=== PATIENT | female | born 1980 | race Caucasian/White ===

== ENCOUNTER 2016-11-05 10:28 | Outpatient (CLI) | payer BC ==
[~2016-11-05] VITALS: Ht 167.6 cm; Wt 63.6 kg
[~2016-11-05 10:28] MED LIST: ACETAZOLAMIDE OR; EFFE75CA75 OR; FLEXERIL OR; TOPI100T OR
[2016-11-05] MEDS ORDERED: KETOROLAC 30 MG/ML VIAL (J1885) IV ONE (12:00)
[2016-11-05] MEDS ORDERED: MAGNESIUM SULFATE 1 GM/100 ML D5W BAG (10MG/ML) (J3475) IV ONE (12:00)
[2016-11-05] MEDS ORDERED: methylPREDNISolone 1,000 MG, VIAL MATE ADAPTER 1 EACH in D5W 250 ML IV ONE (12:00)
[2016-11-05] MEDS ORDERED: NS IV ONE (12:00)
[2016-11-05] MEDS ORDERED: ONDANSETRON 4MG/2ML VIAL (J2405) IV ONE (12:00)
[2016-11-05] MEDS ORDERED: VALPROATE SOD IV ONE (12:00)
[2016-11-05] MEDS ORDERED: IBUP80TA PO (16:08)
== END 2016-11-05 14:15 | disposition home or self-care (01) ==
LOC: M INFU 10:28
PROVIDERS: ATTEND Nurse Practitioner Adult Health
DX: G43.011 Migraine without aura, intractable, with status migrainosus (principal); R01.1 Cardiac murmur, unspecified; Z88.0 Allergy status to penicillin; Z88.8 Allergy status to other drugs, medicaments and biological substances; Z79.899 Other long term (current) drug therapy
CPT/HCPCS: 96365; 96366; 96374; 96375; J1885; J2405; J2930; J3475

== ENCOUNTER → 2017-11-28 | Outpatient (CLI) | payer BC ==
[2017-11-28 13:44] LABS: BASO % 0.6 % (0.0-1.0); EOS # 0.1 10^3/uL (0.0-0.50); EOS % 2.1 % (0.0-3.0); HEMATOCRIT 41.7 % (36.0-47.0); HEMOGLOBIN 13.7 g/dl (12.0-15.5); IMMATURE GRANULOCYTE % 0.2 % (0-3.0); LYMPH # 1.8 10^3/uL (1.5-4.5); LYMPH % 34.8 % (24.0-44.0); MEAN CORPUSCULAR HEMOGLOBIN 29.3 pg (27.0-33.0); MEAN CORPUSCULAR HGB CONC 32.9 g/dl (32.0-36.5); MEAN CORPUSCULAR VOLUME 89.1 fl (80.0-96.0); MONO # 0.5 10^3/uL (0.0-0.8); MONO % 8.9 % (0.0-5.0); NEUTROPHILS # 2.8 10^3/uL (1.8-7.7); NEUTROPHILS % 53.4 % (36.0-66.0); PLATELET COUNT, AUTOMATED 280 10^3/uL (150-450); RED BLOOD COUNT 4.68 10^6/uL (4.00-5.40); RED CELL DISTRIBUTION WIDTH 13.3 % (11.5-14.5); WHITE BLOOD COUNT 5.2 10^3/uL (4.0-10.0)
[2017-11-28 13:57] LABS: ALBUMIN 4.1 GM/DL (3.2-5.2); ALBUMIN/GLOBULIN RATIO 1.32 (1.00-1.93); ALKALINE PHOSPHATASE 40 U/L (45-117); ALT/SGPT 19 U/L (12-78); ANION GAP 5 MEQ/L (8-16); AST/SGOT 18 U/L (7-37); BILIRUBIN,TOTAL 0.8 MG/DL (0.2-1.0); BLOOD UREA NITROGEN 15 MG/DL (7-18); CALCIUM LEVEL 8.7 MG/DL (8.5-10.1); CARBON DIOXIDE LEVEL 27 MEQ/L (21-32); CHLORIDE LEVEL 109 MEQ/L (98-107); GLOMERULAR FILTRATION RATE > 60.0 (>60); GLUCOSE, FASTING 80 MG/DL (70-100); POTASSIUM SERUM 4.2 MEQ/L (3.5-5.1); RHEUMATOID FACTOR QUANT < 10.0 IU/ML (<15.0); SODIUM LEVEL 141 MEQ/L (136-145); TOTAL PROTEIN 7.2 GM/DL (6.4-8.2)
[2017-11-28 14:15] LABS: ERYTHROCYTE SEDIMENTATION RATE 6 mm/hr (0-20)
[2017-11-28 14:46] LABS: ESTIMATED AVERAGE GLUCOSE 88 MG/DL (60-110); HEMOGLOBIN A1c 4.7 %
[2017-11-29 07:49] LABS: TOTAL 25(OH) VITAMIN D 38.4 NG/ML (30.0-100.0)
[2017-11-29 08:19] LABS: FOLATE > 24.0 NG/ML (>5.4); VITAMIN B12 LEVEL 1510 PG/ML (247-911)
[2017-12-01 08:07] LABS: ANTI DOUBLE STRAND-DNA AB <1 IU/mL (0-9); ANTINUCLEAR ANTIBODIES DIRECT Negative (Negative); Lyme Disease IgG Ab 18 kDa Ban Absent (.); Lyme Disease IgG Ab 23 kDa Ban Absent (.); Lyme Disease IgG Ab 28 kDa Ban Absent (.); Lyme Disease IgG Ab 30 kDa Ban Absent (.); Lyme Disease IgG Ab 39 kDa Ban Absent (.); Lyme Disease IgG Ab 41 kDa Ban Absent (.); Lyme Disease IgG Ab 45 kDa Ban Absent (.); Lyme Disease IgG Ab 58 kDa Ban Absent (.); Lyme Disease IgG Ab 66 kDa Ban Absent (.); Lyme Disease IgG Ab 93 kDa Ban Absent (.); Lyme Disease IgG West Blot Int Negative (.); Lyme Disease IgG/IgM Antibodie <0.91 ISR (0.00-0.90); Lyme Disease IgM Ab 23 kDa Ban Present (.); Lyme Disease IgM Ab 39 kDa Ban Absent (.); Lyme Disease IgM Ab 41 kDa Ban Absent (.); Lyme Disease IgM Ab Quantitati 0.84 index (0.00-0.79); Lyme Disease IgM West Blot Int Negative (.); SJOGREN'S ANTI SS-A <0.2 AI (0.0-0.9); SJOGREN'S ANTI SS-B <0.2 AI (0.0-0.9)
[2017-12-02 14:12] LABS: VITAMIN E(GAMMA TOCOPHEROL) 0.3 mg/L (0.7-4.9)
[2017-12-03 00:08] LABS: VITAMIN B1 LEVEL WHOLE BLOOD 227.2 nmol/L (66.5-200.0); VITAMIN B6,PYRIDOXAL PHOSPHATE 100.7 ug/L (2.0-32.8)
== END ==
LOC: M LABNEURO 09:16
DX: R51 Headache (principal); G31.84 Mild cognitive impairment of uncertain or unknown etiology
CPT/HCPCS: 82746

== ENCOUNTER 2017-12-06 12:06 | Outpatient (CLI) | payer BC ==
[2017-12-06] MEDS: ONDANSETRON 4MG/2ML VIAL (J2405) IV (12:37)
[2017-12-06] MEDS: KETOROLAC 30 MG/ML VIAL (J1885) IV (12:37)
[2017-12-06] MEDS: NS MINI IV (13:27)
[2017-12-06] MEDS: VALPROATE SOD IV (13:27)
[2017-12-06] MEDS: methylPREDNISolone 1,000 MG, VIAL MATE ADAPTER 1 EACH in D5W 250 ML IV (14:01)
[2017-12-06] MEDS: MAG SULF 1GM/100ML (MAG RUN) SINGLE DOSE IV (15:17)
== END 2017-12-06 16:37 | disposition home or self-care (01) ==
LOC: M OPCLI4PV 12:06 → M MSPAV 12:09 → M OPCLI4PV 16:37
DX: G43.011 Migraine without aura, intractable, with status migrainosus (principal)
CPT/HCPCS: J2405

== ENCOUNTER → 2018-02-10 | Outpatient (CLI) | payer BC | LOC: M LRY 16:24 | DX: S99.922A Unspecified injury of left foot, initial encounter (principal); X58.XXXA Exposure to other specified factors, initial encounter; Y92.9 Unspecified place or not applicable | CPT/HCPCS: G0463 ==

== ENCOUNTER → 2018-04-21 | Outpatient (REF) | payer BC ==
[2018-04-21 13:30] LABS: BASO % 0.2 % (0.0-1.0); EOS # 0.1 10^3/uL (0.0-0.50); EOS % 2.4 % (0.0-3.0); HEMATOCRIT 41.9 % (36.0-47.0); HEMOGLOBIN 13.7 g/dl (12.0-15.5); IMMATURE GRANULOCYTE % 0.2 % (0-3.0); LYMPH # 1.7 10^3/uL (1.5-4.5); LYMPH % 34.2 % (24.0-44.0); MEAN CORPUSCULAR HGB CONC 32.7 g/dl (32.0-36.5); MEAN CORPUSCULAR VOLUME 88.6 fl (80.0-96.0); MONO # 0.4 10^3/uL (0.0-0.8); MONO % 7.5 % (0.0-5.0); NEUTROPHILS # 2.7 10^3/uL (1.8-7.7); NEUTROPHILS % 55.5 % (36.0-66.0); PLATELET COUNT, AUTOMATED 242 10^3/uL (150-450); RED BLOOD COUNT 4.73 10^6/uL (4.00-5.40); RED CELL DISTRIBUTION WIDTH 12.5 % (11.5-14.5); WHITE BLOOD COUNT 4.9 10^3/uL (4.0-10.0)
[2018-04-22 00:13] LABS: ALBUMIN 3.9 GM/DL (3.2-5.2); ALKALINE PHOSPHATASE 48 U/L (45-117); ALT/SGPT 19 U/L (12-78); ANION GAP 9 MEQ/L (8-16); AST/SGOT 15 U/L (7-37); BILIRUBIN,TOTAL 0.9 MG/DL (0.2-1.0); BLOOD UREA NITROGEN 14 MG/DL (7-18); CALCIUM LEVEL 8.5 MG/DL (8.5-10.1); CARBON DIOXIDE LEVEL 24 MEQ/L (21-32); CHLORIDE LEVEL 108 MEQ/L (98-107); CREATININE FOR GFR 0.82 MG/DL (0.55-1.30); FERRITIN 68 NG/ML (8-252); GLOMERULAR FILTRATION RATE > 60.0 (>60); GLUCOSE, FASTING 78 MG/DL (70-100); IRON (FE) 129 UG/DL (50-170); SODIUM LEVEL 141 MEQ/L (136-145); TOTAL IRON BINDING CAPACITY 267 UG/DL (250-450); TOTAL PROTEIN 6.7 GM/DL (6.4-8.2)
[2018-04-22 00:51] LABS: ALBUMIN/GLOBULIN RATIO 1.39 (1.00-1.93); PERCENT SATURATION 48.3 % (13.2-45.0)
[2018-04-22 08:06] LABS: TRANSFERRIN 206 mg/dL (200-370)
== END ==
LOC: M LABNEURO 10:05
DX: G25.81 Restless legs syndrome (principal)
CPT/HCPCS: 83550

== ENCOUNTER 2018-05-27 07:10 | Outpatient (CLI) | payer BC ==
[2018-05-27] MEDS: ONDANSETRON 4MG/2ML VIAL (J2405) IV (07:38)
[2018-05-27] MEDS: methylPREDNISolone 1,000 MG, VIAL MATE ADAPTER 1 EACH in D5W 250 ML IV (07:39)
[2018-05-27] MEDS: VALPROATE SOD IV (09:01)
[2018-05-27] MEDS: NS IV (09:01)
[2018-05-27] MEDS: KETOROLAC 30 MG/ML VIAL (J1885) IV (09:01)
[2018-05-27] MEDS: MAG SULF 1GM/100ML (MAG RUN) SINGLE DOSE IV (10:06)
== END 2018-05-27 11:15 | disposition home or self-care (01) ==
LOC: M INFU 07:10
DX: G43.011 Migraine without aura, intractable, with status migrainosus (principal)
CPT/HCPCS: J2405

== ENCOUNTER 2018-06-11 06:59 | Outpatient (CLI) | payer BC, SELFPAY ==
[2018-06-11] MEDS: ONDANSETRON 4MG/2ML VIAL (J2405) IV ×2 (07:43)
[2018-06-11] MEDS: MAG SULF 1GM/100ML (MAG RUN) 1 GM in APPROPRIATE DILUENT 1 EA IV (07:45)
[2018-06-11] MEDS: KETOROLAC 30 MG/ML VIAL (J1885) IV ×2 (09:01)
[2018-06-11] MEDS: VALPROATE SOD IV (09:03)
[2018-06-11] MEDS: NS IV (09:03)
[2018-06-11] MEDS: methylPREDNISolone 1,000 MG, VIAL MATE ADAPTER 1 EACH in D5W 250 ML IV ×2 (10:15)
== END 2018-06-11 11:30 | disposition home or self-care (01) ==
LOC: M INFU 06:59
DX: G43.011 Migraine without aura, intractable, with status migrainosus (principal); Z88.8 Allergy status to other drugs, medicaments and biological substances; Z88.0 Allergy status to penicillin; Z90.710 Acquired absence of both cervix and uterus
CPT/HCPCS: J2405

== ENCOUNTER 2018-06-20 13:15 | Outpatient (CLI) | payer BC ==
[2018-06-20] MEDS: ONDANSETRON 4MG/2ML VIAL (J2405) IV ×2 (13:57)
[2018-06-20] MEDS: KETOROLAC 30 MG/ML VIAL (J1885) IV ×2 (13:58)
[2018-06-20] MEDS: VALPROATE SOD IV (13:59)
[2018-06-20] MEDS: NS IV (13:59)
[2018-06-20] MEDS: methylPREDNISolone 1,000 MG, VIAL MATE ADAPTER 1 EACH in D5W 250 ML IV ×2 (14:30)
[2018-06-20] MEDS: MAG SULF 1GM/100ML (MAG RUN) SINGLE DOSE IV ×2 (15:35)
== END 2018-06-20 16:35 | disposition home or self-care (01) ==
LOC: M INFU 13:15
DX: G43.011 Migraine without aura, intractable, with status migrainosus (principal); Z88.0 Allergy status to penicillin; Z88.8 Allergy status to other drugs, medicaments and biological substances
CPT/HCPCS: J2405

== ENCOUNTER → 2018-12-17 | Outpatient (REF) | payer OTHER ==
[~2018-12-17] MED LIST changes: +IBUP80TA PO
== END ==
LOC: M LAB REF 15:56
PROVIDERS: ATTEND Radiology Diagnostic Radiology
DX: N63.10 Unspecified lump in the right breast, unspecified quadrant (principal)

== ENCOUNTER → 2019-07-06 | Outpatient (REF) | payer OTHER ==
[~2019-07-06] MED LIST changes: +GALC120S SQ; +ZOMI2.5T4 PO
[2019-07-06 19:27] LABS: BASO % 0.4 % (0.0-1.0); EOS % 1.9 % (0.0-3.0); HEMATOCRIT 43.6 % (36.0-47.0); HEMOGLOBIN 13.9 g/dl (12.0-15.5); LYMPH # 2.1 10^3/uL (1.5-5.0); LYMPH % 38.6 % (24.0-44.0); MEAN CORPUSCULAR HEMOGLOBIN 29.2 pg (27.0-33.0); MEAN CORPUSCULAR HGB CONC 31.9 g/dl (32.0-36.5); MEAN CORPUSCULAR VOLUME 91.6 fl (80.0-96.0); MONO # 0.5 10^3/uL (0.0-0.8); NEUTROPHILS # 2.7 10^3/uL (1.5-8.5); NEUTROPHILS % 49.9 % (36.0-66.0); PLATELET COUNT, AUTOMATED 248 10^3/uL (150-450); RED BLOOD COUNT 4.76 10^6/uL (4.00-5.40); WHITE BLOOD COUNT 5.3 10^3/uL (4.0-10.0)
[2019-07-06 19:28] LABS: EOS # 0.1 10^3/uL (0.0-0.5)
[2019-07-06 19:34] LABS: ALT/SGPT 26 U/L (12-78); BILIRUBIN,TOTAL 0.6 MG/DL (0.2-1.0); BLOOD UREA NITROGEN 12 MG/DL (7-18); CALCIUM LEVEL 8.5 MG/DL (8.5-10.1); CARBON DIOXIDE LEVEL 26 MEQ/L (21-32); CHLORIDE LEVEL 110 MEQ/L (98-107); CREATININE FOR GFR 0.91 MG/DL (0.55-1.30); GLOMERULAR FILTRATION RATE > 60.0 (>58); GLUCOSE, FASTING 88 MG/DL (70-100); POTASSIUM SERUM 3.8 MEQ/L (3.5-5.1); RHEUMATOID FACTOR QUANT < 10.0 IU/ML (<15.0); SODIUM LEVEL 141 MEQ/L (136-145); TOTAL 25(OH) VITAMIN D 27.4 NG/ML (30.0-100.0); TOTAL PROTEIN 6.8 GM/DL (6.4-8.2); VITAMIN B12 LEVEL 1819 PG/ML
[2019-07-06 19:35] LABS: FOLATE 6.8 NG/ML
[2019-07-06 21:23] LABS: ERYTHROCYTE SEDIMENTATION RATE 2 mm/hr (0-20)
[2019-07-07 11:43] LABS: DRVV SCREEN 36.1 SEC
[2019-07-07 11:45] LABS: PTT LUPUS TYPE ANTICOAG SCREEN 0.9 (0-1.2)
== END ==
LOC: M LABNEURO 14:24
PROVIDERS: ATTEND Psychiatry & Neurology Neurology
DX: R51 Headache (principal); G90.09 Other idiopathic peripheral autonomic neuropathy; T50.905A Adverse effect of unspecified drugs, medicaments and biological substances, initial encounter

== ENCOUNTER → 2019-12-14 | Outpatient (CLI) | payer OTHER ==
--- NOTE | 2019-12-15 04:15 | REP ---
Clinical: Bilateral hip pain. Technique: Neutral and frog lateral views of the right and left hip. Findings: Right and left hips demonstrate relatively symmetric minimal increased sclerosis to the acetabular roof with subtle superior joint space narrowing. No further significant arthritic degenerative changes are identified. No evidence for acute fracture or dislocation. Impression: Mild age-related degenerative changes suggested. Electronically Signed by Brian Sahni MD 12/15/2019 04:07 A
== END ==
LOC: M WUC 12:31
PROVIDERS: ATTEND Psychiatry & Neurology Neurology
DX: M17.0 Bilateral primary osteoarthritis of knee (principal)

== ENCOUNTER → 2020-01-04 | Outpatient (CLI) | payer OTHER ==
[~2020-01-04] MED LIST changes: +PROT1TAB2 PO; +ZONI100C17 PO
== END ==
LOC: M LABSMTC 11:59
PROVIDERS: ATTEND Anesthesiology
DX: Z01.812 Encounter for preprocedural laboratory examination (principal); Z11.59 Encounter for screening for other viral diseases

== ENCOUNTER 2020-01-07 13:03 | Day surgery (SDC) | payer OTHER ==
[~2020-01-07] VITALS: Ht 167.6 cm; Wt 63.0 kg
[~2020-01-07 13:03] MED LIST changes: +NS 1,000 ML IV ONE
[2020-01-07] MEDS ORDERED: LIDOCAINE 2% 100MG/5ML SDV (FOR ANES.) As Ordered ONE (13:57)
[2020-01-07] MEDS ORDERED: fentaNYL 100 MCG/2 ML INJECTION (J3010) As Ordered ONE (13:57)
[2020-01-07] MEDS ORDERED: propofoL 200 MG/20 ML VIAL As Ordered ONE (13:57)
--- NOTE | 2020-01-07 14:11 | ROOR ---
Patient Name: Fiorella Walker Procedure Date: 01/07/2020 1:49 PM Date of : 1980 Age: 39 Room: [facility] Gender: Female Note Status: Finalized Procedure: Upper GI endoscopy Indications: Suspected esophageal reflux Providers: Dimitrios Alvarado Jr, MD Referring MD: Annie JIMÉNEZ DO Requesting Provider: Medicines: Propofol per Anesthesia Complications: No immediate complications. Procedure: Pre-Anesthesia Assessment: - Prior to the procedure, a History and Physical was performed, and patient medications and allergies were reviewed. The patient is competent. The risks and benefits of the procedure and the sedation options and risks were discussed with the patient. All questions were answered and informed consent was obtained. Patient identification and proposed procedure were verified by the physician and the nurse in the pre-procedure area and in the procedure room. Mental Status Examination: alert and oriented. Airway Examination: normal oropharyngeal airway and neck mobility. Respiratory Examination: clear to auscultation. CV Examination: normal. ASA Grade Assessment: I - A normal, healthy patient. After reviewing the risks and benefits, the patient was deemed in satisfactory condition to undergo the procedure. The anesthesia plan was to use moderate sedation / analgesia (conscious sedation). Immediately prior to administration of medications, the patient was re-assessed for adequacy to receive sedatives. The heart rate, respiratory rate, oxygen saturations, blood pressure, adequacy of pulmonary ventilation, and response to care were monitored throughout the procedure. The physical status of the patient was re-assessed after the procedure. The Endoscope was introduced through the mouth, and advanced to the second part of duodenum. The upper GI endoscopy was accomplished without difficulty. The patient tolerated the procedure well. Findings: The upper third of the esophagus, middle third of the esophagus and lower third of the esophagus were normal. The gastroesophageal junction, cardia, gastric fundus, gastric body and gastric antrum were normal. One non-bleeding superficial gastric ulcer with no stigmata of bleeding was found at the pylorus. Biopsies were taken with a cold forceps for histology. The duodenal bulb, first portion of the duodenum and second portion of the duodenum were normal. Impression: - Normal upper third of esophagus, middle third of esophagus and lower third of esophagus. - Normal gastroesophageal junction, cardia, gastric fundus, gastric body and antrum. - Non-bleeding gastric ulcer with no stigmata of bleeding. Biopsied. - Normal duodenal bulb, first portion of the duodenum and second portion of the duodenum. Recommendation: - Discharge patient to home (ambulatory). - Return to my office in 1 week. Dimitrios Alvarado MD Dimitrios Alvarado Jr, MD 01/07/2020 2:11:02 PM Electronically signed by Dimitrios Alvarado Jr, MD Number of Addenda: 0 Note Initiated On: 01/07/2020 1:49 PM Estimated Blood Loss: Estimated blood loss: none.
[2020-01-07 14:48] VITALS: BP 110/73
== END 2020-01-07 14:35 | disposition home or self-care (01) ==
LOC: M OPP 13:03
PROVIDERS: ATTEND Surgery
DX: K25.9 Gastric ulcer, unspecified as acute or chronic, without hemorrhage or perforation (principal); K21.9 Gastro-esophageal reflux disease without esophagitis; R49.0 Dysphonia; Z79.899 Other long term (current) drug therapy; Z80.0 Family history of malignant neoplasm of digestive organs; Z88.8 Allergy status to other drugs, medicaments and biological substances
CPT/HCPCS: 43239; 88305; J3010

== ENCOUNTER → 2020-08-17 | Outpatient (CLI) | payer OTHER ==
[~2020-08-17] MED LIST changes: -NS 1,000 ML IV ONE
[2020-08-17 17:32] LABS: BASO % 0.3 % (0.0-1.0); EOS # 0.1 10^3/uL (0.0-0.5); HEMATOCRIT 42.9 % (36.0-47.0); HEMOGLOBIN 13.7 g/dl (12.0-15.5); LYMPH # 1.7 10^3/uL (1.5-5.0); LYMPH % 42.7 % (24.0-44.0); MEAN CORPUSCULAR HEMOGLOBIN 29.1 pg (27.0-33.0); MEAN CORPUSCULAR HGB CONC 31.9 g/dl (32.0-36.5); MEAN CORPUSCULAR VOLUME 91.1 fl (80.0-96.0); MONO # 0.4 10^3/uL (0.0-0.8); MONO % 10.7 % (0.0-5.0); NEUTROPHILS # 1.7 10^3/uL (1.5-8.5); PLATELET COUNT, AUTOMATED 258 10^3/uL (150-450); RED BLOOD COUNT 4.71 10^6/uL (4.00-5.40); WHITE BLOOD COUNT 3.9 10^3/uL (4.0-10.0)
[2020-08-17 17:56] LABS: ALBUMIN 4.1 GM/DL (3.2-5.2); ALT/SGPT 23 U/L (12-78); BILIRUBIN,TOTAL 0.9 MG/DL (0.2-1.0); BLOOD UREA NITROGEN 13 MG/DL (7-18); CARBON DIOXIDE LEVEL 27 MEQ/L (21-32); CHLORIDE LEVEL 111 MEQ/L (98-107); FREE T4 1.12 NG/DL (0.76-1.46); GLOMERULAR FILTRATION RATE > 60.0 (>58); GLUCOSE, FASTING 84 MG/DL (70-100); MAGNESIUM LEVEL 2.5 MG/DL (1.8-2.4); SODIUM LEVEL 140 MEQ/L (136-145); TOTAL PROTEIN 6.8 GM/DL (6.4-8.2)
== END ==
LOC: M PLALAB 15:12
PROVIDERS: ATTEND Physician Assistant
DX: G25.81 Restless legs syndrome (principal)

== ENCOUNTER → 2021-05-19 | Outpatient (CLI) | payer OTHER ==
[2021-05-24 00:09] LABS: METANEPHRINE TOTAL URINE 50 ug/L (Undefined); METANEPHRINE URINE 90 ug/24 hr (36-209); NORMETANEPHRINE TOTAL URINE 121 ug/L (Undefined); NORMETANEPHRINE URINE 218 ug/24 hr (131-612)
== END ==
LOC: M LAB 10:28
PROVIDERS: ATTEND Physician Assistant
DX: F45.8 Other somatoform disorders (principal)

== ENCOUNTER → 2021-06-05 | Outpatient (CLI) | payer OTHER ==
--- NOTE | 2021-06-05 17:07 | REP ---
INDICATION: F45.8 [facility] SOMATOFORM DISORDER. COMPARISON: 12/07/2010. TECHNIQUE: Multiple heavily T2 weighted sequences are obtained in the axial and coronal planes. 3D MIP reconstruction images are performed. FINDINGS: There is no intrahepatic or extrahepatic biliary dilatation. There is no gross biliary stricture and no focal dilatation. Common bile duct has a maximum diameter of approximately 6 mm. Pancreatic duct is normal in caliber. Gallbladder is mildly distended with no wall thickening or edema. No internal filling defect or gallstone is seen. There is no evidence of choledocholithiasis. The liver, spleen, adrenals, pancreas and kidneys are grossly unremarkable. I see no adenopathy or free fluid in the abdomen. Bilateral breast implants are intact. IMPRESSION: Negative MRCP exam. <Electronically signed by Cy Calderon > 06/05/21 [id number]
--- NOTE | 2021-06-05 18:45 | REP ---
INDICATION: F45.8 OTH SOMATOFORM DISORDER. COMPARISON: None. TECHNIQUE: Real-time sonographic evaluation of thyroid performed. FINDINGS: The right lobe of thyroid measures 4.9 x 1.6 x 1.4 cm. The left lobe of the thyroid measures 4.0 x 1.1 x 1.1 cm. There is a hypoechoic nodule in the mid right lobe which measures 5 x 3 x 4 mm. This could represent a small complex cyst, or may possibly be a solid nodule. No other cystic or solid nodule is seen bilaterally. IMPRESSION: There is a 5 mm complex cyst or solid nodule in the mid right lobe. Otherwise unremarkable. <Electronically signed by Cy Calderon > 06/05/21 [id number]
== END ==
LOC: M RAD 15:36
PROVIDERS: ATTEND Physician Assistant
DX: F45.8 Other somatoform disorders (principal)

== ENCOUNTER → 2022-01-18 | Outpatient (CLI) | payer OTHER ==
[~2022-01-18] MED LIST changes: -ZONI100C17 PO; +ZONI100C67 PO
[2022-01-18 11:45] LABS: FOLATE > 24.0 NG/ML; PROGESTERONE 1.25 NG/ML; VITAMIN B12 LEVEL 1114 PG/ML
== END ==
LOC: M WUC 09:09
PROVIDERS: ATTEND Family Medicine
DX: F45.8 Other somatoform disorders (principal); F41.1 Generalized anxiety disorder

== ENCOUNTER → 2022-05-15 | Outpatient (CLI) | payer OTHER ==
[~2022-05-15] MED LIST changes: +ISOVUE-370 76% 100ML VIAL As Ordered ONE
== END ==
LOC: M RAD 13:55
PROVIDERS: ATTEND Family Medicine
DX: R63.4 Abnormal weight loss (principal)
CPT/HCPCS: 71260; Q9967

== ENCOUNTER → 2022-06-11 | Outpatient (CLI) | payer OTHER ==
[~2022-06-11] MED LIST changes: +E-Z-GAS II EFFERVESCENT PACKET (SODIUM BICARB./CITRIC ACID/SIMETHICONE) As Ordered ONE; +E-Z-HD 98% w/w 340GM SUSP BTL As Ordered ONE; +E-Z-PAQUE 96% w/w SUSP 176GM BTL As Ordered ONE; -ISOVUE-370 76% 100ML VIAL As Ordered ONE
== END ==
LOC: M RAD 09:58
PROVIDERS: ATTEND Surgery Vascular Surgery
DX: K59.89 Other specified functional intestinal disorders (principal)